=== PATIENT | female | born 1995 | race Asian ===

== ENCOUNTER 2019-07-31 00:52 | Inpatient (IN) | payer MEDICAID ==
[~2019-07-31] VITALS: Ht 157.5 cm; Wt 63.8 kg
[2019-07-31] MEDS ORDERED: ALBUTEROL 0.5%, 20ML ONE (01:15)
[2019-07-31] MEDS ORDERED: ALBUTEROL SULFATE 2.5 MG/3 ML NPPB ONE (01:30)
[2019-07-31 01:43] LABS: BASOPHILS # (AUTO) 0.13 x10^3/uL (0-0.1); BASOPHILS % (AUTO) 1 % (0-1); EOSINOPHILS # (AUTO) 1.14 x10^3/uL (0-0.4); EOSINOPHILS % (AUTO) 7 % (1-7); LYMPHOCYTES # (AUTO) 1.37 x10^3/uL (1-3.4); LYMPHOCYTES % (AUTO) 9 % (22-44); MD NO; MEAN CORPUSCULAR HEMOGLOBIN 24.6 pg (27.0-34.8); MEAN CORPUSCULAR HGB CONC 31.2 g/dL (32.4-35.8); MONOCYTES % (AUTO) 6 % (2-9); NEUTROPHILS # (AUTO) 12.31 x10^3/uL (1.8-6.8); NEUTROPHILS % (AUTO) 77 % (42-75); PLATELET COUNT 363 x10^3/uL (130-400); RED BLOOD COUNT 4.97 x10^6/uL (3.82-5.3); RED CELL DISTRIBUTION WIDTH 19.1 % (9.6-15.2)
[2019-07-31 01:51] LABS: ALBUMIN 3.8 g/dL (3.4-5.0); ANION GAP 7 mmol/L (5-15); CALCIUM 9.1 mg/dL (8.5-10.1); CHLORIDE 106 mmol/L (98-107); CREATININE 0.81 mg/dL (0.55-1.02)
--- NOTE | 2019-07-31 02:01 | NUR ---
Pt wob improving and states feeling "a little" better.
[2019-07-31 03:30] VITALS: BP 138/86
[2019-07-31] MEDS ORDERED: ALBUTEROL SULFATE 2.5 MG/3 ML NPPB PRN (04:30)
[2019-07-31] MEDS ORDERED: SODIUM CHLORIDE 0.9% 1,000 ML IV SCH (05:01)
[2019-07-31] MEDS ORDERED: PROMETHAZINE 25 MG/ML, 1ML IM PRN (05:30)
[2019-07-31] MEDS ORDERED: ENOXAPARIN 40 MG/0.4 ML SQ SCH (05:30)
[2019-07-31] MEDS ORDERED: ACETAMINOPHEN 325 MG TABLET PO PRN (05:30)
[2019-07-31] MEDS ORDERED: MAGNESIUM SULFATE PMX 2GM/50ML 50 ML IV ONE (05:30)
[2019-07-31] MEDS ORDERED: methylPREDNISolone SOD SUCC 125 MG/2 ML IVPush SCH (05:30)
[2019-07-31] MEDS: ALBUTEROL SULFATE 2.5 MG/3 ML NPPB SCH ×4 (07:15→18:54)
[2019-07-31 07:32] VITALS: BP 132/77
[2019-07-31 08:02] LABS: AMPHETAMINE SCREEN, URINE Positive (Negative); BARBITURATE SCREEN, URINE Negative (Negative); BENZODIAZEPINE SCREEN, URINE Negative (Negative); CANNABINOID SCREEN, URINE Negative (Negative); COCAINE SCREEN, URINE Negative (Negative); METHADONE SCREEN, URINE Negative (Negative); OPIATE SCREEN, URINE Positive (Negative)
[2019-07-31] MEDS: methylPREDNISolone SOD SUCC 40 MG/ML IV SCH ×2 (08:30→16:44)
[2019-07-31 17:54] VITALS: BP 123/83
[2019-07-31 18:34] VITALS: BP 136/86
[2019-08-01] MEDS: methylPREDNISolone SOD SUCC 40 MG/ML IV SCH ×2 (00:52→08:00)
[2019-08-01 02:46] VITALS: BP 105/69
[2019-08-01 04:55] LABS: MEAN CORPUSCULAR HEMOGLOBIN 24.5 pg (27.0-34.8); MEAN CORPUSCULAR HGB CONC 31.3 g/dL (32.4-35.8); MEAN CORPUSCULAR VOLUME 78.2 fL (80-100); MEAN PLATELET VOLUME 9.1 fL (7.4-10.4); PLATELET COUNT 359 x10^3/uL (130-400); RED BLOOD COUNT 4.53 x10^6/uL (3.82-5.3); RED CELL DISTRIBUTION WIDTH 19.5 % (9.6-15.2)
[2019-08-01 05:03] LABS: CHLORIDE 109 mmol/L (98-107)
[2019-08-01 05:10] LABS: ANION GAP 7 mmol/L (5-15); CALCIUM 9.1 mg/dL (8.5-10.1); CREATININE 0.79 mg/dL (0.55-1.02)
[2019-08-01 05:40] LABS: BASOPHILS % (AUTO) 0 % (0-1); EOSINOPHILS # (AUTO) 0.35 x10^3/uL (0-0.4); EOSINOPHILS % (AUTO) 1 % (1-7); LYMPHOCYTES # (AUTO) 0.58 x10^3/uL (1-3.4); LYMPHOCYTES % (AUTO) 2 % (22-44); MD SCAN; MONOCYTES # (AUTO) 0.75 x10^3/uL (0.2-0.8); MONOCYTES % (AUTO) 3 % (2-9); NEUTROPHILS % (AUTO) 94 % (42-75)
[2019-08-01 06:47] VITALS: BP 102/66
[2019-08-01] MEDS: ALBUTEROL SULFATE 2.5 MG/3 ML NPPB SCH ×4 (07:10→19:19)
[2019-08-01 12:29] VITALS: BP 106/69
[2019-08-01 18:37] VITALS: BP 118/78
[2019-08-01] MEDS ORDERED: methylPREDNISolone SOD SUCC 40 MG/ML IV SCH (20:30)
[2019-08-02 00:19] VITALS: BP 109/71
[2019-08-02] MEDS: ALBUTEROL SULFATE 2.5 MG/3 ML NPPB SCH ×2 (06:45→11:30)
[2019-08-02 07:17] VITALS: BP 108/69
[2019-08-02] MEDS ORDERED: CEFTRIAXONE 250 MG IM ONE (09:30)
[2019-08-02] MEDS ORDERED: AZITHROMYCIN 500 MG TABLET PO ONE (09:30)
[2019-08-02] MEDS ORDERED: ALBU18HF INH (09:35)
[2019-08-02] MEDS ORDERED: PRED20TA PO (09:35)
== END 2019-08-02 11:50 | disposition home or self-care (01) | DRG 189 ==
LOC: ED 01:42 → EDIP 02:26 → 4WST 03:25 → DCLOUNGE 08-02 11:45
PROVIDERS: ADMIT Family Medicine; ATTEND Internal Medicine Infectious Disease
DX: J96.01 Acute respiratory failure with hypoxia (principal); J45.52 Severe persistent asthma with status asthmaticus; F17.210 Nicotine dependence, cigarettes, uncomplicated; J06.9 Acute upper respiratory infection, unspecified; D72.829 Elevated white blood cell count, unspecified
CPT/HCPCS: 99285; J7611; J7613; 87491; 87591; 94640; J0696; J2920; J2930; J3475; J7030; J7512